=== PATIENT | female | born 1955 | race Caucasian/White ===

== ENCOUNTER 2016-12-17 16:32 | Emergency (ER) | payer OTHER ==
--- NOTE | 2016-12-17 17:48 | ER Document Report ---
ED Medical Screen (RME) - General Stated Complaint: CHEST PAIN Notes: 61 yo female c/o dizziness, short of breath, headache and chest heaviness since 1330 today. symptoms occur when she turns her head to right. pt asymptomatic if sitting still. discussed with Dr Sargent, recommends cardiac work up and head CT TRAVEL OUTSIDE OF THE [place] IN LAST 30 DAYS: No - Related Data Allergies/Adverse Reactions: No Known Allergies Allergy (Verified 05/29/14 13:26) Past Medical History Pulmonary Medical History: Reports: Hx Bronchitis, Hx Pneumonia Past Surgical History: Reports: Hx Cardiac Surgery - "valve cauterization", Hx Section - x3, Hx Cholecystectomy - Immunizations Immunizations up to date: No Hx Diphtheria, Pertussis, Tetanus Vaccination: Yes - 2010
[2016-12-17 18:38] LABS: ABSOLUTE BASOPHILS # (AUTO) 0.1 10^3/uL (0.0-0.2); ABSOLUTE EOSINOPHILS # (AUTO) 0.1 10^3/uL (0.0-0.6); ABSOLUTE LYMPHOCYTES (AUTO) 2.5 10^3/uL (0.5-4.7); ABSOLUTE MONOCYTES (AUTO) 0.7 10^3/uL (0.1-1.4); ABSOLUTE NEUT (AUTO) 7.7 10^3/uL (1.7-8.2); BASOPHILS % (AUTO) 0.6 % (0-2); EOSINOPHILS % (AUTO) 0.9 % (0-6); HEMOGLOBIN 14.8 g/dL (12.0-15.5); HGB HCT DIFFERENCE 0.4; LYMPHOCYTES % (AUTO) 22.4 % (13-45); MEAN CORPUSCULAR HEMOGLOBIN 28.9 pg (27.0-33.4); MEAN CORPUSCULAR HGB CONC 33.7 g/dL (32.0-36.0); MEAN CORPUSCULAR VOLUME 86 fl (80-97); RED BLOOD COUNT 5.13 10^6/uL (3.72-5.28); RED CELL DISTRIBUTION WIDTH 13.8 % (11.5-14.0); SEGMENTED NEUTROPHILS % (AUTO) 70.1 % (42-78)
[2016-12-17 18:45] LABS: APPEARANCE,URINE CLEAR; BILIRUBIN,URINE NEGATIVE (NEGATIVE); GLUCOSE, URINE NEGATIVE (NEGATIVE); KETONES,URINE NEGATIVE (NEGATIVE); LEUKOCYTE ESTERASE,URINE NEGATIVE (NEGATIVE); NITRITE,URINE POSITIVE (NEGATIVE); PROTEIN,URINE NEGATIVE (NEGATIVE); URINE SPECIFIC GRAVITY 1.014; UROBILINOGEN,URINE NEGATIVE mg/dL (<2.0)
[2016-12-17 18:56] LABS: ALANINE AMINOTRANSFERASE 39 U/L (9-52); ALBUMIN 4.8 g/dL (3.5-5.0); ALKALINE PHOSPHATASE 70 U/L (38-126); ANION GAP 15 (5-19); ASPARTATE AMINO TRANSFERASE 21 U/L (14-36); BILIRUBIN,TOTAL 0.7 mg/dL (0.2-1.3); BLOOD UREA NITROGEN 24 mg/dL (7-20); CALCIUM 10.5 mg/dL (8.4-10.2); CARBON DIOXIDE 26 mmol/L (22-30); CHLORIDE 100 mmol/L (98-107); CREATINE KINASE 82 U/L (30-135); CREATININE RESULT 0.82 mg/dL (0.52-1.25); GLUCOSE 101 mg/dL (75-110); POTASSIUM 4.1 mmol/L (3.6-5.0); SODIUM 141.3 mmol/L (137-145)
[2016-12-17 18:57] LABS: TOTAL PROTEIN 7.7 g/dL (6.3-8.2)
[2016-12-17 19:07] LABS: CREATINE KINASE MB 0.94 ng/mL (<4.55)
[2016-12-17 19:08] LABS: TROPONIN I < 0.012 ng/mL
[2016-12-17 23:20] VITALS: BP 124/88
--- NOTE | 2016-12-17 23:27 | ER Document Report ---
[id number] Notes: Patient is a 61-year-old female presents for complaint of some dizziness and chest pain. Patient works at a [employer]. Patient says she slowly felt very dizzy and this or having chest pain. Of breath. Patient had multiple episodes of dizziness associated with chest pain is well after that. Patient did not feel like the room was spinning. She felt as if she was going to pass out. Patient did not fully pass out. No fevers. No other complaints at this time. She does have a previous history of SVT and did have an ablation performed. She is unsure if this felt similar to that or not. TRAVEL OUTSIDE OF THE [place] IN LAST 30 DAYS: No - Related Data Allergies/Adverse Reactions: No Known Allergies Allergy (Verified 12/17/16 17:39) Past Medical History - Social History Smoking Status: Current Every Day Smoker Chew tobacco use (# tins/day): No Frequency of alcohol use: None Drug Abuse: None Family History: Hypertension Patient has suicidal ideation: No Patient has homicidal ideation: No Pulmonary Medical History: Reports: Hx Bronchitis, Hx Pneumonia Renal/ Medical History: Denies: Hx Peritoneal Dialysis Past Surgical History: Reports: Hx Cardiac Surgery - "valve cauterization", Hx Section - x3, Hx Cholecystectomy - Immunizations Immunizations up to date: No Hx Diphtheria, Pertussis, Tetanus Vaccination: Yes - 2010 Review of Systems - Review of Systems Notes: My Normal Review Basic REVIEW OF SYSTEMS: CONSTITUTIONAL : Denies fever, chills, or sweats. Denies recent illness. EENT: Denies eye, ear, throat, or mouth pain or symptoms. Denies nasal or sinus congestion. CARDIOVASCULAR: Palpitations. Chest pain RESPIRATORY: Denies cough, cold, or chest congestion. Denies shortness of breath, difficulty breathing, or wheezing. GASTROINTESTINAL: Denies abdominal pain. Denies nausea, vomiting, or diarrhea. Denies constipation. Last BM: SKIN: Denies rash or skin lesions. HEMATOLOGIC : Denies easy bruising or bleeding. LYMPHATIC: Denies swollen, enlarged glands. NEUROLOGICAL: Near syncope PSYCHIATRIC: Denies anxiety or stress or depression. ALL OTHER SYSTEMS REVIEWED AND NEGATIVE. Physical Exam - Vital signs Vitals: Temp Pulse Resp BP Pulse Ox 97.7 F 85 20 152/95 H 96 12/17/16 17:38 12/17/16 17:38 12/17/16 17:38 12/17/16 17:38 12/17/16 17:38 - Notes Notes: General Appearance: Well nourished, alert, cooperative, no acute distress, no obvious discomfort. Well-appearing. Vitals: reviewed, See vital signs table. Head: no swelling or tenderness to the head Eyes: PERRL, EOMI, Conjuctiva clear Mouth: No decreasd moisture Neck: Supple, no neck tenderness, No thyromegaly Lungs: No wheezing, No rales, No rhonci, No accessory muscle use, good air exchange bilaterally. Heart: Normal rate, Regular rythm, No murmur, no rub Abdomen: Normal BS, soft, No rigidity, No abdominal tenderness, No guarding, no rebound, no abdominal masses, no organomegaly Extremities: strength 5/5 in all extremities, good pulses in all extremities, no swelling or tenderness in the extremities, no edema. Skin: warm, dry, appropriate color, no rash Neuro: speech clear, oriented x 3, normal affect, responds appropriately to questions. Cranial nerves II through XII are intact. Distal sensation intact. Patient moves all extremities without difficulty. Course - Vital Signs Vital signs: Temp Pulse Resp BP Pulse Ox 97.7 F 75 16 124/88 H 96 12/17/16 22:55 12/17/16 22:55 12/17/16 22:55 12/17/16 22:55 12/17/16 22:55 - Laboratory Result Diagrams: 12/17/16 17:55 12/17/16 17:55 Laboratory results interpreted by me: 12/17/16 12/17/16 12/17/16 17:55 17:55 18:00 WBC 11.0 H BUN 24 H Calcium 10.5 H Urine Blood MODERATE H Urine Nitrite POSITIVE H - EKG Interpretation by Me Additional EKG results interpreted by me: 12/17/16 23:29 EKG is reviewed and interpreted by me. EKG shows some sinus rhythm with rate of [address] segment elevation or depression. No ischemic T wave inversions. WA interval, QRS duration, QTC intervals are within normal range. Old EKG for comparison is 03/21/2013. - Transfer of Care Notes: 12/18/16 06:10 Patient's has symptoms are concerning for an arrhythmia. It could be SVT as it was in the past but she's not had any SVT for many years since her ablation. Being that she is not the age of 61 I do of concern that she had this episode recurrently and that this could be more serious or life-threatening arrhythmia. I strongly encourage her to stay in hospital for observation and evaluation. Patient refuses to stay and wants to be discharged home. I did inform her that she could have a lethal arrhythmia which could kill her. Patient understands this and says she will follow-up with her doctor tomorrow and proceed the frame opener as well. Patient strongly encouraged to return to ER anytime if she changes her mind about admission or she needs further evaluation. Strongly encouraged return to ER immediately if she has any recurrent chest pain or dizziness. Patient agrees with plan will be discharged home. Dictation of this chart was performed using voice recognition software; therefore, there may be some unintended grammatical errors. Discharge - Discharge Clinical Impression: Dizziness Chest pain Qualifiers: Chest pain type: unspecified Qualified Code(s): R07.9 - Chest pain, unspecified Headache Qualifiers: Headache type: unspecified Headache chronicity pattern: unspecified pattern Intractability: not intractable Qualified Code(s): R51 - Headache Condition: Good Disposition: HOME, SELF-CARE Additional Instructions: CHEST PAIN OF UNCLEAR CAUSE: The exact cause of your chest pain isn't clear. . Further testing may be required to find the source of the pain. Most often, we find that this pain is coming from the chest wall -- the muscles or rib joints in the chest. But chest pain can come from the lung and lung lining, the esophagus, the heart valves or heart lining, and even the stomach or gallbladder. Rest. Eat lightly until the pain is gone. We may prescribe medicine for pain and inflammation. You should call the physician immediately if the pain radiates to the shoulder, jaw or arms; if you start to run a fever or develop a cough; or if you develop shortness of breath, or other new or alarming symptoms. NORMAL EXAM AND WORKUP: At this time, your examination and workup show no significant abnormality. No significant abnormal physical findings were noted. All laboratory, EKG, and imaging (x-ray) studies that were ordered show no significant abnormality. Although your examination and all studies that were ordered showed no significant abnormal finding, there are no examinations and no studies that are 100% accurate. There is always the possibility that some abnormality could exist and not be detected with physical examination or within the limits and capabilities of laboratory and other studies. You should return or follow up as you were instructed on your visit today for further evaluation if your symptoms do not resolve. FOLLOW-UP CARE: If you have been referred to a physician for follow-up care, call the physician s office for an appointment as you were instructed or within the next two days. If you experience worsening or a significant change in your symptoms, notify the physician immediately or return to the Emergency Department at any time for re-evaluation. As discussed with you, I do recommend admission to the hospital for further workup of your episode you had today. I feel that staying in hospital will be much safer being that we do not know what caused your chest pain and dizziness. This could be recurrence of your SVT; however, this could also be a serious heart arrhythmia which could cause . I do respect your decision to go home and follow closely with her doctor. I strongly encourage you to return to ER anytime for further workup and treatment. Please take a daily 81 mg aspirin. Referrals: AYESHA BARTHOLOMEW MD [[facility]] - Follow up tomorrow
--- NOTE | 2016-12-18 08:12 | EKG REPORT ---
SEVERITY:- NORMAL ECG - SINUS RHYTHM : Confirmed by: Usman Carrillo MD 18-Dec-2016 08:12:27
== END 2016-12-17 23:37 | disposition home or self-care (01) ==
LOC: ER 16:32
DX: R55 Syncope and collapse (principal); R07.9 Chest pain, unspecified; R00.2 Palpitations; R51 Headache; F17.200 Nicotine dependence, unspecified, uncomplicated; Z86.79 Personal history of other diseases of the circulatory system; Z98.890 Other specified postprocedural states
CPT/HCPCS: 36415; 70450; 71020; 80053; 81001; 82550; 82553; 84484; 85025; 93005; 93010; 99285

== ENCOUNTER 2017-05-28 12:49 | Emergency (ER) | payer OTHER ==
--- NOTE | 2017-05-28 13:26 | ER Document Report ---
ED Medical Screen (RME) - General Chief Complaint: Cough Stated Complaint: COUGH, CHEST PAIN Time Seen by Provider: 05/28/17 13:22 Notes: Patient has had a cough for approximately 3 months. She states it is productive of yellow-green sputum. She states she can no longer lie flat. She denies any chest pain but does have some right shoulder pain. She also has some pain under both breasts when she coughs. She does not believe she has had any fevers. She does smoke. She has had no swelling of the lower extremities no previous history of DVTs or PEs. She states she has had some type of abnormal rhythm of her heart before and had to have an ablation done approximately 2 years ago. She has had no recent palpitations. She states she has never been told that she has COPD or congestive heart failure. TRAVEL OUTSIDE OF THE [place] IN LAST 30 DAYS: No - Related Data Allergies/Adverse Reactions: No Known Allergies Allergy (Verified 12/17/16 17:39) Past Medical History - Social History Chew tobacco use (# tins/day): No Frequency of alcohol use: None Drug Abuse: None Pulmonary Medical History: Reports: Hx Bronchitis, Hx Pneumonia Renal/ Medical History: Denies: Hx Peritoneal Dialysis Past Surgical History: Reports: Hx Cardiac Surgery - "valve cauterization", Hx Section - x3, Hx Cholecystectomy - Immunizations Immunizations up to date: No Hx Diphtheria, Pertussis, Tetanus Vaccination: Yes - 2010
[2017-05-28 13:57] LABS: ABSOLUTE BASOPHILS # (AUTO) 0.1 10^3/uL (0.0-0.2); ABSOLUTE EOSINOPHILS # (AUTO) 0.1 10^3/uL (0.0-0.6); ABSOLUTE LYMPHOCYTES (AUTO) 2.6 10^3/uL (0.5-4.7); ABSOLUTE MONOCYTES (AUTO) 0.7 10^3/uL (0.1-1.4); ABSOLUTE NEUT (AUTO) 7.1 10^3/uL (1.7-8.2); BASOPHILS % (AUTO) 0.8 % (0-2); HEMATOCRIT 46.8 % (36.0-47.0); HEMOGLOBIN 15.6 g/dL (12.0-15.5); LYMPHOCYTES % (AUTO) 24.3 % (13-45); MEAN CORPUSCULAR HEMOGLOBIN 28.4 pg (27.0-33.4); MEAN CORPUSCULAR HGB CONC 33.2 g/dL (32.0-36.0); MEAN CORPUSCULAR VOLUME 86 fl (80-97); MONOCYTES % (AUTO) 6.3 % (3-13); RED BLOOD COUNT 5.48 10^6/uL (3.72-5.28); SEGMENTED NEUTROPHILS % (AUTO) 67.6 % (42-78); WHITE BLOOD COUNT 10.5 10^3/uL (4.0-10.5)
[2017-05-28 14:00] LABS: ALANINE AMINOTRANSFERASE 31 U/L (9-52); ALBUMIN 4.8 g/dL (3.5-5.0); ALKALINE PHOSPHATASE 87 U/L (38-126); ANION GAP 14 (5-19); ASPARTATE AMINO TRANSFERASE 20 U/L (14-36); BILIRUBIN,DIRECT 0.4 mg/dL (0.0-0.4); BILIRUBIN,TOTAL 0.6 mg/dL (0.2-1.3); BLOOD UREA NITROGEN 16 mg/dL (7-20); CALCIUM 10.2 mg/dL (8.4-10.2); CARBON DIOXIDE 24 mmol/L (22-30); CHLORIDE 105 mmol/L (98-107); CREATININE RESULT 0.81 mg/dL (0.52-1.25); GLUCOSE 103 mg/dL (75-110); POTASSIUM 4.4 mmol/L (3.6-5.0); TOTAL PROTEIN 8.1 g/dL (6.3-8.2)
--- NOTE | 2017-05-28 14:17 | RADIOLOGY REPORT (SQ) ---
EXAM DESCRIPTION: CHEST PA/LAT COMPLETED DATE/TIME: 05/28/2017 2:04 pm REASON FOR STUDY: cough/sob COMPARISON: December 2016 EXAM PARAMETERS: NUMBER OF VIEWS: two views TECHNIQUE: Digital Frontal and Lateral radiographic views of the chest acquired. RADIATION DOSE: NA LIMITATIONS: none FINDINGS: LUNGS AND PLEURA: No opacities, masses or pneumothorax. No pleural effusion. MEDIASTINUM AND HILAR STRUCTURES: No masses or contour abnormalities. HEART AND VASCULAR STRUCTURES: Heart normal size. No evidence for failure. BONES: No acute findings. HARDWARE: None in the chest. OTHER: No other significant finding. IMPRESSION: NO SIGNIFICANT RADIOGRAPHIC FINDING IN THE CHEST. TECHNICAL DOCUMENTATION: JOB ID: [id number] [employer]- All Rights Reserved
[2017-05-28] MEDS ORDERED: METHYLPREDNISOLONE INJ 125 MG/2 ML SDV IV ONE (14:34)
[2017-05-28] MEDS ORDERED: IPRATROPIUM/ALBUTEROL 0.5-2.5 MG/3 ML AMPUL NEB ONE ×2 (14:34)
--- NOTE | 2017-05-28 15:00 | ER Document Report ---
ED General - General Chief Complaint: Cough Stated Complaint: COUGH, CHEST PAIN Time Seen by Provider: 05/28/17 13:22 Mode of Arrival: Ambulatory Information source: Patient Notes: 61-year-old smoker presents with complaints of a cough of 3 month duration. Patient notes it is nonproductive admits to shortness of breath when she coughs. Patient is attempted to decrease the amount she is smoking. She has been told that she probably has COPD but has not been tested or treated TRAVEL OUTSIDE OF THE [place] IN LAST 30 DAYS: No - HPI Onset: Other Onset/Duration: Persistent Quality of pain: No pain Severity: Mild Pain Level: 1 Associated symptoms: Nonproductive cough, Shortness of breath Exacerbated by: Walking, Coughing Relieved by: Denies Similar symptoms previously: Yes Recently seen / treated by doctor: Yes - Related Data Allergies/Adverse Reactions: No Known Allergies Allergy (Verified 12/17/16 17:39) Home Medications: Current Home Medications Benzonatate [Tessalon Perles 100 mg Capsule] 200 mg PO Q8HP PRN 05/28/17 [ History] Past Medical History - Social History Smoking Status: Current Every Day Smoker Cigarette use (# per day): Yes Chew tobacco use (# tins/day): No Smoking Education Provided: Yes - Patient counselled regarding cessation for 4 minutes Frequency of alcohol use: None Drug Abuse: None Family History: Hypertension Patient has suicidal ideation: No Patient has homicidal ideation: No Pulmonary Medical History: Reports: Hx Bronchitis, Hx Pneumonia Renal/ Medical History: Denies: Hx Peritoneal Dialysis Past Surgical History: Reports: Hx Cardiac Surgery - "valve cauterization", Hx Section - x3, Hx Cholecystectomy - Immunizations Immunizations up to date: No Hx Diphtheria, Pertussis, Tetanus Vaccination: Yes - 2010 Review of Systems - Review of Systems Notes: REVIEW OF SYSTEMS: CONSTITUTIONAL : Denies fever, chills, or sweats. Denies recent illness. EENT: Denies eye, ear, throat, or mouth pain or symptoms. Denies nasal or sinus congestion or discharge. Denies throat, tongue, or mouth swelling or difficulty swallowing. CARDIOVASCULAR: Denies chest pain. Denies palpitations or racing or irregular heart beat. Denies ankle edema. RESPIRATORY: Admits to shortness of breath cough GASTROINTESTINAL: Denies abdominal pain or distention. Denies nausea, vomiting , or diarrhea. Denies blood in vomitus, stools, or per rectum. Denies black, tarry stools. Denies constipation. GENITOURINARY: Denies difficulty urinating, painful urination, burning, frequency, blood in urine, or discharge. FEMALE GENITOURINARY: Denies vaginal bleeding, heavy or abnormal periods, irregular periods. Denies vaginal discharge or odor. MUSCULOSKELETAL: Denies back or neck pain or stiffness. Denies joint pain or swelling. SKIN: Denies rash, lesions or sores. HEMATOLOGIC : Denies easy bruising or bleeding. LYMPHATIC: Denies swollen, enlarged glands. NEUROLOGICAL: Denies confusion or altered mental status. Denies passing out or loss of consciousness. Denies dizziness or lightheadedness. Denies headache. Denies weakness or paralysis or loss of use of either side. Denies problems with gait or speech. Denies sensory loss, numbness, or tingling. Denies seizures. PSYCHIATRIC: Denies anxiety or stress. Denies depression, suicidal ideation, or homicidal ideation. ALL OTHER SYSTEMS REVIEWED AND NEGATIVE. PHYSICAL EXAMINATION: GENERAL: Well-appearing, well-nourished and in no acute distress. HEAD: Atraumatic, normocephalic. EYES: Pupils equal round and reactive to light, extraocular movements intact, conjunctiva are normal. ENT: Nares patent, oropharynx clear without exudates. Moist mucous membranes. NECK: Normal range of motion, supple without lymphadenopathy LUNGS: Coarse wheezing noted all throughout HEART: Regular rate and rhythm without murmurs ABDOMEN: Soft, nontender, nondistended abdomen. No guarding, no rebound. No masses appreciated. Female : deferred Musculoskeletal: Normal range of motion, no pitting or edema. No cyanosis. NEUROLOGICAL: Cranial nerves grossly intact. Normal speech, normal gait. Normal sensory, motor exams PSYCH: Normal mood, normal affect. SKIN: Warm, Dry, normal turgor, no rashes or lesions noted. Dictation was performed using [employer] voice recognition software Course - Re-evaluation Re-evalutation: 05/28/17 15:00 Patient is in no respiratory distress satting 96%, however she does have wheezing, she will be started on breathing treatments given steroids patient has probable COPD and will require further testing follow-up 05/28/17 15:46 Patient notes significant improvement of aeration after breathing treatments, I will discharge home with inhaler steroids and otherwise very strict return precautions and follow-up with pulmonary function testing with primary care physician After performing a Medical Screening Examination, I estimate there is LOW risk for ACUTE CORONARY SYNDROME, RESPIRATORY FAILURE, SEPSIS OR MENINGITIS, thus I consider the discharge disposition reasonable. I have reevaluated this patient multiple times and no significant life threatening changes are noted. The patient and I have discussed the diagnosis and risks, and we agree with discharging home with close follow-up. We also discussed returning to the Emergency Department immediately if new or worsening symptoms occur. We have discussed the symptoms which are most concerning (e.g., changing or worsening pain, trouble swallowing or breathing, neck stiffness, fever) that necessitate immediate return. 05/28/17 15:47 - Laboratory Result Diagrams: 05/28/17 13:34 05/28/17 13:34 Laboratory results interpreted by me: 05/28/17 13:34 RBC 5.48 H Hgb 15.6 H - Diagnostic Test Radiology reviewed: Image reviewed, Reports reviewed - No acute abnormality - EKG Interpretation by Me EKG shows normal: Sinus rhythm, [place], Intervals, QRS Complexes Discharge - Discharge Clinical Impression: COPD exacerbation, Cough Condition: Stable Disposition: HOME, SELF-CARE Instructions: Chronic Obstructive Lung Disease ([facility]) Prescriptions: Prednisone [Deltasone 20 mg Tablet] 3 tab PO DAILY 5 Days Referrals: JOHN PRADO PA-C [Primary Care Provider] - Follow up tomorrow
[2017-05-28] MEDS ORDERED: ALBUTEROL SULFATE HFA (90 MCG/PUFF) 8 GM MDI (1 MDI/ER DISP) IH PRN (15:48)
[2017-05-28 16:15] VITALS: BP 118/83
--- NOTE | 2017-05-29 05:56 | EKG REPORT ---
SEVERITY:- BORDERLINE ECG - SINUS TACHYCARDIA PROBABLE LEFT ATRIAL ABNORMALITY : Confirmed by: Nellie Toro MD 29-May-2017 05:55:51
== END 2017-05-28 16:15 | disposition home or self-care (01) ==
LOC: ER 12:49
DX: J44.1 Chronic obstructive pulmonary disease with (acute) exacerbation (principal); R05 Cough; R06.02 Shortness of breath; F17.210 Nicotine dependence, cigarettes, uncomplicated; Z71.6 Tobacco abuse counseling; Z87.01 Personal history of pneumonia (recurrent)
CPT/HCPCS: 93005; 99406; 94640; 99284; 96374; 36415; 85025; 80053; 83880; 71020; 93010; J2930; J3490; J7620